=== PATIENT | female | born 1990 | race African-American/Black ===

== ENCOUNTER 2019-10-09 00:35 | Observation (INO) | payer OTHER | END 2019-10-09 03:43 | disposition home or self-care (01) | DRG 833 | LOC: LDRP 00:35 | PROVIDERS: ADMIT Specialist; ATTEND Specialist | DX: O9A.212 Injury, poisoning and certain other consequences of external causes complicating pregnancy, second trimester (principal); M54.9 Dorsalgia, unspecified; M79.10 Myalgia, unspecified site; N89.8 Other specified noninflammatory disorders of vagina; Z3A.23 23 weeks gestation of pregnancy; V89.2XXA Person injured in unspecified motor-vehicle accident, traffic, initial encounter; Y93.89 Activity, other specified; Y92.89 Other specified places as the place of occurrence of the external cause; Y99.8 Other external cause status | CPT/HCPCS: 59025; 76815; 81002; G0378 ==

== ENCOUNTER 2019-12-30 15:54 | Observation (INO) | payer MEDICAID, OTHER ==
[~2019-12-30] VITALS: Ht 162.6 cm; Wt 68.0 kg
[2019-12-30] MEDS ORDERED: PREN-96 PO (17:18)
[2019-12-30] MEDS ORDERED: FERR-7 PO (17:18)
[2019-12-30] MEDS ORDERED: TERBUTALINE SULFATE 1 MG/ML 1ML VIAL SC SCH (18:00)
[2019-12-30] MEDS ORDERED: LACTATED RINGER'S 1,000 ML IV ONE (18:00)
[2019-12-30] MEDS ORDERED: AMMONIA 0.33 ML INHALANT IN ONE (18:40)
== END 2019-12-30 21:15 | disposition home or self-care (01) ==
LOC: LDRP 15:54
PROVIDERS: ADMIT Obstetrics & Gynecology; ATTEND Obstetrics & Gynecology
DX: O60.03 Preterm labor without delivery, third trimester (principal); O24.410 Gestational diabetes mellitus in pregnancy, diet controlled; O13.3 Gestational [pregnancy-induced] hypertension without significant proteinuria, third trimester; O34.63 Maternal care for abnormality of vagina, third trimester; N89.8 Other specified noninflammatory disorders of vagina; O26.893 Other specified pregnancy related conditions, third trimester; R51.9 Headache, unspecified; R42 Dizziness and giddiness; Z3A.35 35 weeks gestation of pregnancy
CPT/HCPCS: 59025; 76818; 81002; 82948; 82962; 94760; 96360; 96361; 96372; G0378; J3105

== ENCOUNTER 2020-01-03 15:24 | Observation (INO) | payer MEDICAID ==
[~2020-01-03 15:24] MED LIST: FERR-7 PO; PREN-96 PO
[2020-01-03] MEDS ORDERED: TERBUTALINE SULFATE 1 MG/ML 1ML VIAL SC SCH (17:00)
== END 2020-01-03 17:32 | disposition home or self-care (01) ==
LOC: LDRP 15:24
PROVIDERS: ADMIT Obstetrics & Gynecology; ATTEND Obstetrics & Gynecology
DX: O24.410 Gestational diabetes mellitus in pregnancy, diet controlled (principal); Z3A.35 35 weeks gestation of pregnancy
CPT/HCPCS: 59025; 76818; 81002; 82948; 82962; G0378

== ENCOUNTER 2020-01-10 15:17 | Observation (INO) | payer MEDICAID | END 2020-01-10 17:00 | disposition home or self-care (01) | LOC: LDRP 15:17 | PROVIDERS: ADMIT Obstetrics & Gynecology; ATTEND Obstetrics & Gynecology | DX: O24.419 Gestational diabetes mellitus in pregnancy, unspecified control (principal); Z3A.36 36 weeks gestation of pregnancy | CPT/HCPCS: 59025; 76818; 81002; 82962; G0378 ==

== ENCOUNTER 2020-01-17 16:09 | Observation (INO) | payer MEDICAID | END 2020-01-17 17:25 | disposition home or self-care (01) | LOC: LDRP 16:09 | PROVIDERS: ADMIT Obstetrics & Gynecology; ATTEND Obstetrics & Gynecology | DX: O24.419 Gestational diabetes mellitus in pregnancy, unspecified control (principal); Z3A.37 37 weeks gestation of pregnancy | CPT/HCPCS: 59025; 76818; 81002; 82948; 82962; G0378 ==

== ENCOUNTER 2020-01-24 15:45 | Observation (INO) | payer BC, MEDICAID | END 2020-01-24 16:54 | disposition home or self-care (01) | LOC: UNDOADMOB 15:45 → LDRP 15:45 → UNDODISOB 16:54 | PROVIDERS: ADMIT Specialist; ATTEND Specialist | DX: O24.419 Gestational diabetes mellitus in pregnancy, unspecified control (principal); Z3A.38 38 weeks gestation of pregnancy | CPT/HCPCS: 59025; 76818; 81002; 82948; 82962; G0378 ==

== ENCOUNTER 2020-01-31 15:01 | Observation (INO) | payer BC, MEDICAID | END 2020-01-31 18:45 | disposition home or self-care (01) | LOC: LDRP 15:01 | PROVIDERS: ADMIT Specialist; ATTEND Specialist | DX: O24.410 Gestational diabetes mellitus in pregnancy, diet controlled (principal); Z3A.39 39 weeks gestation of pregnancy | CPT/HCPCS: 59025; 76818; 81002; 82962; 84112; G0378; Q0114 ==

== ENCOUNTER 2020-02-01 05:36 | Inpatient (IN) | payer BC, MEDICAID ==
[~2020-02-01] VITALS: Ht 162.6 cm; Wt 72.6 kg
[2020-02-01] MEDS ORDERED: WITCH HAZEL-GLYCERIN PAD TOP PRN (07:15)
[2020-02-01] MEDS ORDERED: DERMOPLAST 60ML BOTTLE TOP PRN (07:15)
[2020-02-01] MEDS ORDERED: ACCU-CHEK COMFORT CURVE STRIP VI PRN (07:15)
[2020-02-01] MEDS ORDERED: PHISODERM TOP SOLN 240ML BTL TOP PRN (07:15)
[2020-02-01] MEDS ORDERED: miSOPROStol 50 MCG per PRE-CUT 1/2 TAB PO ONE (07:15)
[2020-02-01] MEDS ORDERED: LACT. RINGERS/OXYTOCIN 20UNITS 1,000 ML IV SCH (07:15)
[2020-02-01] MEDS ORDERED: PENICILLIN G POT 5MIL/D5 50ML 50 ML IV ONE (07:15)
[2020-02-01] MEDS ORDERED: LACTATED RINGER'S 1,000 ML IV SCH (07:15)
[2020-02-01] MEDS ORDERED: LIDOCAINE 2%HCL (LOCAL ANESTH.) INJ 20ML MDV IJ PRN (07:15)
[2020-02-01] MEDS ORDERED: LACT. RINGERS/OXYTOCIN 20UNITS 1,000 ML IV ONE (07:15)
[2020-02-01] MEDS ORDERED: BUTORPHANOL TARTRATE 2 MG/1 ML VIAL IV PRN ×2 (07:15)
[2020-02-01] MEDS ORDERED: PROMETHAZINE HCL 25 MG/ML 1ML IV PRN (07:15)
[2020-02-01 08:30] LABS: Basophils # (auto) 0 10 ^3/uL (0-0.2); Basophils % (auto) 0.3 % (0.0-2.0); Eosinophils # (auto) 0.1 10 ^3/uL (0-0.8); Eosinophils % (auto) 0.5 % (0.0-7.0); Hematocrit 39.2 % (36.0-46.0); Lymphocytes # (auto) 1.9 10 ^3/uL (0.4-5.4); Lymphocytes % (auto) 17.5 % (10.0-50.0); Mean Corpuscular Hemoglobin 28.7 pg (28.0-32.0); Mean Corpuscular Hgb Conc. 33.2 g/dL (32.0-36.0); Mean Corpuscular Volume 86.5 fL (80.0-100.0); Monocytes # (auto) 0.7 10 ^3/uL (0-1.3); Monocytes % (auto) 6.7 % (0.0-12.0); Platelet Count (auto) 139 10^3/uL (140-450); Red Blood Cells 4.54 10^6/uL (4.0-5.20); Red Cell Distribution Width 14.2 % (11.8-14.3); White Blood Cell 10.7 10^3/uL (4.4-10.8)
[2020-02-01 08:43] LABS: INR 0.97 (0.9-1.15); Partial Thromboplastin Time 28.5 sec (23.0-31.2)
[2020-02-01 08:58] LABS: Alcohol, Urine < 3.0 mg/dL (0-10); Amphetamine Screen, Urine NEGATIVE (NEGATIVE); Barbiturate Scree,Urine NEGATIVE (NEGATIVE); Benzodiazephine Screen, Urine NEGATIVE (NEGATIVE); Cannabinoid Screen, Urine NEGATIVE (NEGATIVE); Cocaine Screen, Urine NEGATIVE (NEGATIVE); Opiate Scree,Urine NEGATIVE (NEGATIVE); Phencyclidine Screen, Urine NEGATIVE (NEGATIVE)
[2020-02-01] MEDS: D5W/LACTATED RINGERS 1,000 ML IV SCH ×2 (09:51→20:27)
[2020-02-01 09:54] LABS: Albumin 2.8 g/dL (3.4-5.0); Calcium 8.5 mg/dL (8.5-10.1); Potassium 3.7 mmol/L (3.5-5.1)
[2020-02-01 09:59] LABS: BUN/Creatinine Ratio 7.1; Total Protein 6.4 g/dL (6.4-8.2)
[2020-02-01] MEDS ORDERED: ePHEDrine SULFATE 50 MG/ML AMP IV ONE ×2 (13:00→15:30)
[2020-02-01] MEDS ORDERED: ROPIVACAINE HCL 200 ML EPI SCH (13:00)
[2020-02-01] MEDS ORDERED: LIDOCAINE HCL 2 %PF INJ 10ML AMP IJ ONE (13:00)
[2020-02-01] MEDS ORDERED: NALOXONE HCL 0.4 MG/ML VIAL IV ONE ×2 (13:00→15:30)
[2020-02-01] MEDS ORDERED: LACTATED RINGER'S 1,000 ML IV ONE (13:00)
[2020-02-01] MEDS: PENICILLIN G POTASSIUM 2,500,000 UNITS in D5W 5% 50 ML IV SCH ×3 (13:07→21:25)
[2020-02-01] MEDS ORDERED: ROPIVACAINE HCL 100 ML EPI SCH (15:30)
[2020-02-01] MEDS ORDERED: SODIUM CHLORIDE 0.9% 500 ML IV PRN (15:30)
[2020-02-01] MEDS: ceFAZolin 1GM/50ML 50 ML IV SCH ×2 (15:46→23:08)
[2020-02-01] MEDS ORDERED: ACETAMINOPHEN 325 MG TAB PO ONE (23:30)
[2020-02-02] MEDS ORDERED: TERBUTALINE SULFATE 1 MG/ML 1ML VIAL SC ONE ×2 (00:48→01:00)
[2020-02-02] MEDS ORDERED: miSOPROStol 100 mcg TAB ONE (01:50)
[2020-02-02] MEDS ORDERED: METHYLERGONOVINE MALEATE 0.2 MG/ML AMP IM ONE (01:50)
[2020-02-02] MEDS ORDERED: ACETAMINOPHEN 325 MG TAB PO PRN (04:30)
[2020-02-02 06:06] LABS: RPR Non Reactive (Non Reactive)
[2020-02-02] MEDS ORDERED: GENTAMICIN SULFATE 80 MG in D5W 5% 100 ML IV SCH ×2 (06:15→10:00)
[2020-02-02 07:00] VITALS: BP 120/72
[2020-02-02] MEDS: DOCUSATE SOD 100 MG CAP PO SCH ×2 (07:10→21:41)
[2020-02-02] MEDS: IBUPROFEN 600 MG TAB PO PRN ×3 (07:11→22:25)
[2020-02-02] MEDS: ceFAZolin 1GM/50ML 50 ML IV SCH (07:14)
[2020-02-02 11:00] VITALS: BP 110/69
[2020-02-02 15:10] VITALS: BP 112/73
[2020-02-02] MEDS: GENTAMICIN SULFATE 80 MG in D5W 5% 100 ML IV SCH (18:45)
[2020-02-02 18:49] VITALS: BP 111/73
[2020-02-02 22:54] VITALS: BP 110/69
[2020-02-03 02:48] VITALS: BP 103/67
[2020-02-03] MEDS: GENTAMICIN SULFATE 80 MG in D5W 5% 100 ML IV SCH (02:50)
[2020-02-03 06:46] VITALS: BP 103/74
[2020-02-03 11:15] VITALS: BP 105/65
[2020-02-03] MEDS: IBUPROFEN 600 MG TAB PO PRN (11:54)
[2020-02-03] MEDS: DOCUSATE SOD 100 MG CAP PO SCH (11:54)
== END 2020-02-03 15:22 | disposition home or self-care (01) | DRG 807 ==
LOC: LDRP 05:36 → OBSVTOIN 07:00 → LDRP 18:11
PROVIDERS: ADMIT Specialist; ATTEND Specialist
PROC: 10D07Z6 Extraction of Products of Conception, Vacuum, Via Natural or Artificial Opening (ICD-10-PCS; principal; 2020-02-02)
PROC: 0KQM0ZZ Repair Perineum Muscle, Open Approach (ICD-10-PCS; 2020-02-02)
PROC: 0W8NXZZ Division of Female Perineum, External Approach (ICD-10-PCS; 2020-02-02)
PROC: 3E0R3BZ Introduction of Anesthetic Agent into Spinal Canal, Percutaneous Approach (ICD-10-PCS; 2020-02-02)
PROC: 00HU33Z Insertion of Infusion Device into Spinal Canal, Percutaneous Approach (ICD-10-PCS; 2020-02-02)
DX: O42.92 Full-term premature rupture of membranes, unspecified as to length of time between rupture and onset of labor (principal); Z37.0 Single live birth; O24.429 Gestational diabetes mellitus in childbirth, unspecified control; Z20.828 Contact with and (suspected) exposure to other viral communicable diseases; O69.81X0 Labor and delivery complicated by cord around neck, without compression, not applicable or unspecified; O70.1 Second degree perineal laceration during delivery; Z3A.39 39 weeks gestation of pregnancy
CPT/HCPCS: 36415; 59025; 59409; 62282; 80053; 80170; 80307; 81002; 82565; 82948; 82962; 84112; 85025; 85610; 85730; 86592; 86850; 86900; 86901; 87040; 87426; 94760; 96360; 96361; 96365; 96366; 96372; G0378; J0690; J2540; J2590; J7060